=== PATIENT | male | born 1960 | race Caucasian/White ===

== ENCOUNTER 2018-11-10 20:38 | Emergency (ER) | payer MEDICAID ==
[~2018-11-10] VITALS: Ht 180.3 cm; Wt 81.7 kg
[2018-11-10] MEDS ORDERED: SUBOXONE 2 MG-1 EAC2 SL (23:24)
== END 2018-11-11 00:34 | disposition home or self-care (01) ==
LOC: ED 20:38
DX: J98.8 Other specified respiratory disorders (principal); R05 Cough
CPT/HCPCS: 71046

== ENCOUNTER 2019-04-27 07:00 | Emergency (ER) | payer MEDICAID ==
[~2019-04-27] VITALS: Ht 180.3 cm; Wt 81.7 kg
[~2019-04-27 07:00] MED LIST: SUBOXONE 2 MG-1 EAC2 SL
[2019-04-27] MEDS ORDERED: ATENOLOL25 MG PO (07:18)
[2019-04-27] MEDS ORDERED: ROSUVASTATIN CA40 MG PO (07:18)
[2019-04-27] MEDS ORDERED: PEPCID20 MG PO (08:14)
[2019-04-27] MEDS ORDERED: PREDNISONE20 MG PO (08:14)
[2019-04-27] MEDS ORDERED: EPIPEN 2-P0.3 MG/0.3 IM (08:14)
[2019-04-27] MEDS ORDERED: NITROSTAT0.3 MG SL (08:18)
--- OUTSIDE RECORDS SUMMARY | 2019-04-27 09:26 | XMS ---
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 EOsmar VISIT COUNT (12 [address] [facility] 2 [place] [address] JASON Mcbride TOTAL 6 NOTE: Visits indicate total known visits. ED/UCC VISIT TRACKING (12 MO.) 04/27/2019 07:01 [facility] [place] TYPE: Emergency COMPLAINT: - RASH/SWELLING 11/10/2018 20:38 [facility] [place] TYPE: Emergency COMPLAINT: - BREATHING ISSUES DIAGNOSES: - Cough - Other specified respiratory disorders 10/23/2018 16:01 [facility] TYPE: Emergency DIAGNOSES: - Drug Problem - Dehydration - Nausea with vomiting, unspecified - Vomiting - nausea 10/10/2018 21:16 [facility] TYPE: Emergency DIAGNOSES: - Anxiety disorder, unspecified - medication - Anxiety - Nausea/vomiting - Other psychoactive substance dependence, uncomplicated 10/10/2018 09:25 [facility] [place] TYPE: Emergency DIAGNOSES: - withdrawal - Delirium Tremens (DTS) - substance abuse issue - Other psychoactive substance abuse, uncomplicated 07/14/2018 03:30 [facility] [place] TYPE: Emergency DIAGNOSES: - Cutaneous abscess of right lower limb - Chest pain, unspecified - Chest Pain - Medic 2 INPATIENT VISIT TRACKING (12 MO.) No inpatient visits to display in this time frame [email or web address]
== END 2019-04-27 08:56 | disposition home or self-care (01) ==
LOC: ED 07:00
DX: T78.3XXA Angioneurotic edema, initial encounter (principal); T39.395A Adverse effect of other nonsteroidal anti-inflammatory drugs [NSAID], initial encounter; I10 Essential (primary) hypertension; E78.5 Hyperlipidemia, unspecified; F17.200 Nicotine dependence, unspecified, uncomplicated; Z95.5 Presence of coronary angioplasty implant and graft; Z95.1 Presence of aortocoronary bypass graft; Z88.1 Allergy status to other antibiotic agents; Z79.899 Other long term (current) drug therapy
CPT/HCPCS: 96372; 99283-25; J1100; J1200

== ENCOUNTER 2019-05-03 13:19 | Emergency (ER) | payer MEDICAID ==
[~2019-05-03] VITALS: Ht 180.3 cm; Wt 81.6 kg
[~2019-05-03 13:19] MED LIST changes: +ATENOLOL25 MG PO; +EPIPEN 2-P0.3 MG/0.3 IM; +NITROSTAT0.3 MG SL; +PEPCID20 MG PO; +PREDNISONE20 MG PO; +ROSUVASTATIN CA40 MG PO
--- OUTSIDE RECORDS SUMMARY | 2019-05-03 13:22 | XMS ---
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 E.D. VISIT COUNT (12 MO.) 2 [facility] [address] TOTAL 7 NOTE: Visits indicate total known visits. 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 - Adverse effect of nonsteroidal anti-inflammatory drugs, init - Essential (primary) hypertension - Presence of aortocoronary bypass graft - Diseases of lips - Nicotine dependence, unspecified, uncomplicated - Allergy status to other antibiotic agents status - Presence of coronary angioplasty implant and graft - Hyperlipidemia, unspecified 11/10/2018 20:38 [facility] [place] TYPE: Emergency COMPLAINT: - BREATHING ISSUES DIAGNOSES: - Cough - Other specified respiratory disorders 10/23/2018 16:01 [facility] TYPE: Emergency DIAGNOSES: - Drug Problem - Dehydration - Nausea with vomiting, unspecified - Vomiting - nausea 10/10/2018 21:16 [facility] TYPE: Emergency DIAGNOSES: - Anxiety disorder, unspecified - medication - Anxiety - Nausea/vomiting - Other psychoactive substance dependence, uncomplicated 10/10/2018 09:25 [facility] TYPE: Emergency DIAGNOSES: - withdrawal - Delirium Tremens (DTS) - substance abuse issue - Other psychoactive substance abuse, uncomplicated 07/14/2018 03:30 [facility] TYPE: Emergency DIAGNOSES: - Cutaneous abscess of right lower limb - Chest pain, unspecified - Chest Pain - Medic 2 INPATIENT VISIT TRACKING (12 MO.) No inpatient visits to display in this time frame [id number]
[2019-05-03] MEDS ORDERED: PENICILLIN V P500 MG PO (18:13)
--- NOTE | 2019-05-03 22:37 | EKG ---
[facility] [address] [facility] [place], [place] [address] Signed Normal sinus rhythm Inferior infarct , age undetermined ST \T\ T wave abnormality, consider lateral ischemia Abnormal ECG No previous ECGs available Confirmed by PRAKASH GARCIA MD ([id number]) on 05/03/2019 10:37:29 PM Electronically Signed By: PRAKASH GARCIA MD 05/03/19 2237 PATIENT NAME: RUPALI QUIROGA Electrocardiogram DATE OF : 60 PHYSICIAN: PRAKASH GARCIA MD REPORT #: [id number] REPORT IS CONFIDENTIAL AND NOT TO BE RELEASED WITHOUT AUTHORIZATION
== END 2019-05-03 18:25 | disposition home or self-care (01) ==
LOC: ED 13:19
DX: K04.7 Periapical abscess without sinus (principal); R07.9 Chest pain, unspecified; R21 Rash and other nonspecific skin eruption; I10 Essential (primary) hypertension; E78.5 Hyperlipidemia, unspecified; F17.200 Nicotine dependence, unspecified, uncomplicated; Z88.1 Allergy status to other antibiotic agents; Z79.899 Other long term (current) drug therapy
CPT/HCPCS: 36415; 71045; 80053; 83880; 84484; 85025; 93005; 93010; 99285-25; 99406

== ENCOUNTER 2019-05-05 20:00 | Emergency (ER) | payer MEDICAID ==
[~2019-05-05] VITALS: Ht 180.3 cm; Wt 81.7 kg
[~2019-05-05 20:00] MED LIST changes: +PENICILLIN V P500 MG PO
--- OUTSIDE RECORDS SUMMARY | 2019-05-05 20:02 | XMS ---
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 - 2 Visits in 30 Days CARE PROVIDERS SUZY JOSEPH Primary Care Current PHONE: [phone] Riley has no Care Guidelines for this patient. E.D. VISIT COUNT (12 MO.) [address] TOTAL 8 NOTE: Visits indicate total known visits. ED/UCC VISIT TRACKING (12 MO.) 05/05/2019 20:00 [facility] [place] TYPE: Emergency COMPLAINT: - EYE,LIP SWELLING/NON INJURY 05/03/2019 13:20 [facility] TYPE: Emergency COMPLAINT: - DIZZY, WEAK, NAUSEA 04/27/2019 07:01 [facility] [place] TYPE: Emergency COMPLAINT: - RASH/SWELLING DIAGNOSES: - Angioneurotic edema, initial encounter - Other [facility] ([facility] drug therapy - Adverse effect of nonsteroidal anti-inflammatory drugs, init - Essential (primary) hypertension - Presence of aortocoronary bypass graft - Diseases of lips - Nicotine dependence, unspecified, uncomplicated - Allergy status to other antibiotic agents status - Presence of coronary angioplasty implant and graft - Hyperlipidemia, unspecified 11/10/2018 20:[address] [facility] TYPE: Emergency COMPLAINT: - BREATHING ISSUES DIAGNOSES: - Cough - Other specified respiratory disorders 10/23/2018 16:01 [facility] TYPE: Emergency DIAGNOSES: - Drug Problem - Dehydration - Nausea with vomiting, unspecified - Vomiting - nausea 10/10/2018 21:16 [facility] TYPE: Emergency DIAGNOSES: - Anxiety disorder, unspecified - medication - Anxiety - Nausea/vomiting - Other psychoactive substance dependence, uncomplicated 10/10/2018 09:25 [facility] TYPE: Emergency DIAGNOSES: - withdrawal - Delirium Tremens (DTS) - substance abuse issue - Other psychoactive substance abuse, uncomplicated 07/14/2018 03:30 [facility] [place] TYPE: Emergency DIAGNOSES: - Cutaneous abscess of right lower limb - Chest pain, unspecified - Chest Pain - Medic 2 INPATIENT VISIT TRACKING (12 MO.) No inpatient visits to display in this time frame [id number]
== END 2019-05-05 22:05 | disposition home or self-care (01) ==
LOC: ED 20:00
DX: L50.9 Urticaria, unspecified (principal); I10 Essential (primary) hypertension; E78.5 Hyperlipidemia, unspecified; F17.200 Nicotine dependence, unspecified, uncomplicated; Z79.899 Other long term (current) drug therapy
CPT/HCPCS: 96374; 96375; 99283-25; J1200; J2930

== ENCOUNTER 2019-06-05 21:11 | Emergency (ER) | payer OTHER ==
[~2019-06-05] VITALS: Ht 180.3 cm; Wt 81.7 kg
--- OUTSIDE RECORDS SUMMARY | 2019-06-05 21:14 | XMS ---
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 Riley has no Care Guidelines for this patient. Ricci VISIT COUNT (12 MO.) 2 [facility] 2 [place] [address] JASON Mcbride TOTAL 9 NOTE: Visits indicate total known visits. ED/[facility] VISIT TRACKING (12 MO.) 06/05/2019 21:11 [facility] [place] TYPE: Emergency COMPLAINT: - FACIAL SWELLING 05/05/2019 20:00 [facility] [place] TYPE: Emergency COMPLAINT: - EYE,LIP SWELLING/NON INJURY DIAGNOSES: - Nicotine dependence, unspecified, uncomplicated - Essential (primary) hypertension - Urticaria, unspecified - Hyperlipidemia, unspecified - Other specified disorders of eye and adnexa - Other manager long term care (current) drug therapy 05/03/2019 13:20 [facility] [place] TYPE: Emergency COMPLAINT: - DIZZY, WEAK, NAUSEA DIAGNOSES: - Allergy status to other antibiotic agents status - Chest pain, unspecified - Rash and other nonspecific skin eruption - Essential (primary) hypertension - Periapical abscess without sinus - Other manager long term care (current) drug therapy - Hyperlipidemia, unspecified - Other specified disorders of teeth and supporting structures - Nicotine dependence, unspecified, uncomplicated 04/27/2019 07:01 [facility] [place] TYPE: Emergency COMPLAINT: - RASH/SWELLING DIAGNOSES: - Angioneurotic edema, initial encounter - Other snf (current) drug therapy - Adverse effect of other nonsteroidal anti-inflammatory drugs - Essential (primary) hypertension - Presence of aortocoronary bypass graft - Diseases of lips - Nicotine dependence, unspecified, uncomplicated - Allergy status to other antibiotic agents status - Presence of coronary angioplasty implant and graft - Hyperlipidemia, unspecified 11/10/2018 20:[address] [facility] [place] TYPE: Emergency COMPLAINT: - BREATHING ISSUES DIAGNOSES: - Cough - Other specified respiratory disorders 10/23/2018 16:01 [facility] [place] [facility] TYPE: Emergency DIAGNOSES: - Drug Problem - Dehydration - Nausea with vomiting, unspecified - Vomiting - nausea 10/10/2018 21:16 [facility] [place] [facility] TYPE: Emergency DIAGNOSES: - Anxiety disorder, unspecified - medication - Anxiety - Nausea/vomiting - Other psychoactive substance dependence, uncomplicated 10/10/2018 09:25 [facility] [place] TYPE: Emergency DIAGNOSES: - withdrawal - Delirium Tremens (DTS) - substance abuse issue - Other psychoactive substance abuse, uncomplicated 07/14/2018 03:30 [facility] [place] TYPE: Emergency DIAGNOSES: - Cutaneous abscess of right lower limb - Chest pain, unspecified - Chest Pain - Medic 2 INPATIENT VISIT TRACKING (12 MO.) No inpatient visits to display in this time frame [id number]
[2019-06-05] MEDS ORDERED: CETIRIZINE HCL10 MG PO (21:49)
== END 2019-06-05 22:18 | disposition home or self-care (01) ==
LOC: ED 21:11
DX: L50.9 Urticaria, unspecified (principal); I10 Essential (primary) hypertension; E78.5 Hyperlipidemia, unspecified; F17.200 Nicotine dependence, unspecified, uncomplicated; Z88.1 Allergy status to other antibiotic agents
CPT/HCPCS: 96372; 99282; J1200; J7512

== ENCOUNTER 2020-02-08 06:16 | Emergency (ER) | payer OTHER ==
[~2020-02-08] VITALS: Ht 180.3 cm; Wt 91.0 kg
[~2020-02-08 06:16] MED LIST changes: +CETIRIZINE HCL10 MG PO
--- OUTSIDE RECORDS SUMMARY | 2020-02-08 06:18 | XMS ---
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 E.Devang VISIT COUNT (12 MO.) 5 [facility] TOTAL 5 NOTE: Visits indicate total known visits. ED/UCC VISIT TRACKING (12 MO.) 02/08/2020 06:16 [facility] [place] TYPE: Emergency COMPLAINT: - FACIAL SWELLING, POSSIBLE MEDICATION REACTION 06/05/2019 21:11 [facility] [place] TYPE: Emergency COMPLAINT: - FACIAL SWELLING DIAGNOSES: - Hyperlipidemia, unspecified - Urticaria, unspecified - Essential (primary) hypertension - Urticaria, unspecified - Allergy status to other antibiotic agents - Nicotine dependence, unspecified, uncomplicated 05/05/2019 20:00 [facility] [place] TYPE: Emergency COMPLAINT: - EYE,LIP SWELLING/NON INJURY DIAGNOSES: - Nicotine dependence, unspecified, uncomplicated - Essential (primary) hypertension - Urticaria, unspecified - Hyperlipidemia, unspecified - Other specified disorders of eye and adnexa - 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 05/03/2019 13:20 [facility] [place] TYPE: Emergency COMPLAINT: - DIZZY, WEAK, NAUSEA DIAGNOSES: - Allergy status to other antibiotic agents - Chest pain, unspecified - Rash and other nonspecific skin eruption - Essential (primary) hypertension - Periapical abscess without sinus - Other detention (current) drug therapy - Hyperlipidemia, unspecified - Other specified disorders of teeth and supporting structures - Nicotine dependence, unspecified, uncomplicated 04/27/2019 07:01 [facility] [place] TYPE: Emergency COMPLAINT: - RASH/SWELLING DIAGNOSES: - Angioneurotic edema, initial encounter - 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
[2020-02-08] MEDS ORDERED: CARVEDILOL3.125 MG PO (06:32)
[2020-02-08] MEDS ORDERED: CLINDAMYCIN HC300 MG PO (06:32)
[2020-02-08] MEDS ORDERED: LISINOPRIL5 MG PO (06:33)
== END 2020-02-08 11:50 | disposition home or self-care (01) ==
LOC: ED 06:16
DX: T78.3XXA Angioneurotic edema, initial encounter (principal); I10 Essential (primary) hypertension; E78.5 Hyperlipidemia, unspecified; F17.200 Nicotine dependence, unspecified, uncomplicated; Z88.1 Allergy status to other antibiotic agents; Z79.899 Other long term (current) drug therapy
CPT/HCPCS: 80053; 85025; 96374; 99283-25

== ENCOUNTER 2020-10-19 16:42 | Emergency (ER) | payer OTHER ==
[~2020-10-19] VITALS: Ht 180.3 cm; Wt 90.7 kg
[~2020-10-19 16:42] MED LIST changes: +CARVEDILOL3.125 MG PO; +CLINDAMYCIN HC300 MG PO; +LISINOPRIL5 MG PO
--- OUTSIDE RECORDS SUMMARY | 2020-10-19 16:44 | XMS ---
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 E.Devang VISIT COUNT (12 MO.) 2 [facility] TOTAL 2 NOTE: Visits indicate total known visits. ED/UCC VISIT TRACKING (12 MO.) 10/19/2020 16:42 [facility] TYPE: Emergency COMPLAINT: - FLU SYMPTOMS 02/08/2020 06:16 [facility] TYPE: Emergency COMPLAINT: - FACIAL SWELLING, POSSIBLE MEDICATION REACTION DIAGNOSES: - Allergy status to other antibiotic agents - Localized swelling, mass and lump, head - Hyperlipidemia, unspecified - Essential (primary) hypertension - Other alf (current) drug therapy - Angioneurotic edema, initial encounter - Nicotine dependence, unspecified, uncomplicated INPATIENT VISIT TRACKING (12 MO.) No inpatient visits to display in this time frame [id number]
[2020-10-19] MEDS ORDERED: REPATHA SU140 MG/1 M SQ (17:30)
[2020-10-19] MEDS ORDERED: BUPRENORPHINE HC8 MG SL (17:31)
== END 2020-10-19 21:29 | disposition home or self-care (01) ==
LOC: ED 16:42
DX: U07.1 COVID-19 (principal); I10 Essential (primary) hypertension; E78.5 Hyperlipidemia, unspecified; F17.200 Nicotine dependence, unspecified, uncomplicated; Z88.1 Allergy status to other antibiotic agents; Z88.8 Allergy status to other drugs, medicaments and biological substances; Z79.899 Other long term (current) drug therapy; Z86.79 Personal history of other diseases of the circulatory system
CPT/HCPCS: 71045; 99283-25; C9803; M0243; Q0244; U0003

== ENCOUNTER 2021-04-24 06:26 | Inpatient (IN) | payer OTHER ==
[~2021-04-24] VITALS: Ht 180.3 cm; Wt 93.4 kg
--- NOTE | ~2021-04-24 | DS ---
[facility] [address], [place] [address] Draft ADMISSION DATE: 04/24/2021 DISCHARGE DATE: 04/26/2021 REASON FOR ADMISSION: This 61-year-old white man lives in [place] and is from [place], [place] a number of years ago. He was evaluated by Dr. Kenny for vague abdominal pain and found on CT scan to likely have small bowel obstruction. He is admitted for further evaluation and care. HISTORY OF PRESENT ILLNESS: Dominantly includes the increasing pain, which progressed to diffuse abdominal tenderness and evaluation in the emergency room using a CT scan showed narrowing of the distal ileum, but without sign of Crohn disease proper. There is proximal small bowel dilation. Clinical examination showed mild distention. No focal tenderness. Laboratory studies on admission showed a white count of 10.1. Liver enzymes were normal. COVID serology negative. HOSPITAL COURSE: He was given a nasogastric tube in the emergency room and decompression undertaken. His first day following admission, he had much improvement in regard to his symptoms and a plain abdominal x-ray showed resolution of small bowel obstruction that had been well demonstrated on CT scan. It is notable that he had no prior abdominal operations, so he has a coronary stenting and other such interventions. The second day of hospitalization, nasogastric tube was removed and he was begun on a clear liquid diet and advanced from there. He had additional bowel movements, lack of abdominal distention and pain and tolerated oral intake well enough that he was deemed resolved on his bowel obstruction both radiographically and clinically. He was discharged home in good condition. DISCHARGE MEDICATIONS: Will include: 1. Nicotine patch 20 mg per 24 hours one topical daily #30, refill 3. 2. Nitroglycerin 21 mg one transdermal daily. 3. Nitrostat 0.3 mg sublingual as needed for chest pain. 4. Buprenorphine 8 mg p.o. 3 times daily. 5. Carvedilol 6.25 mg tablets b.i.d. 6. Atorvastatin 20 mg one tablet p.o. daily. 7. Repatha 140 mg subcutaneously every 2 weeks. 8. Lasix 40 mg p.o. daily as needed for leg edema. PATIENT NAME: RUPALI QUIROGA DISCHARGE SUMMARY DATE OF : 60 REPORT #: [id number] PHYSICIAN: TEDDY ARROYO MD PCP: KIERSTEN JONES PA-C REPORT IS CONFIDENTIAL AND NOT TO BE RELEASED WITHOUT AUTHORIZATION [facility] [address], [place] [address] Draft 9. Aspirin 81 mg daily. DISCHARGE DIAGNOSES: 1. Acute small bowel obstruction with spontaneous resolution. 2. History of coronary disease including stenting and bypass grafting. 3. Buprenorphine therapy. No doubt for prior opiate addiction. 4. Dyslipidemia. FOLLOWUP PLAN: He will return to the ongoing care of [facility]. If he should have recurrent symptoms of small bowel obstruction, he should present to the emergency room once again for further evaluation and treatment. MD ABIEL Mahajan/KATIE /[id number] cc: Dr. Kiersten Encarnacion PA-C Copies: KIERSTEN JONES PA-C ~ PATIENT NAME: RUPALI QUIROGA DISCHARGE SUMMARY DATE OF : 60 REPORT #: [id number] PHYSICIAN: TEDDY ARROYO MD PCP: KIERSTEN JONES PA-C REPORT IS CONFIDENTIAL AND NOT TO BE RELEASED WITHOUT AUTHORIZATION
[~2021-04-24 06:26] MED LIST changes: +BUPRENORPHINE HC8 MG SL; +REPATHA SU140 MG/1 M SQ
--- OUTSIDE RECORDS SUMMARY | 2021-04-24 06:28 | XMS ---
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 E.DBridget VISIT COUNT (12 MO.) 2 [facility] TOTAL 2 NOTE: Visits indicate total known visits. 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
--- NOTE | 2021-04-24 13:00 | NUR ---
Pt arrives to med surg unit via stretcher and able to transfer self to bed. NGT in place to LIWS. Assessment and hx complete. IVF bolus infusing. Pepcid and nicotine patch administered. Pt on room air, VSS. Pt's nephew here to visit patient.
--- NOTE | 2021-04-24 15:00 | NUR ---
Iv pump alarming, distal occlusion, error resolved. Pt resting in bed with no needs. He states no pain or nausea. NGT WNL
--- NOTE | 2021-04-24 15:09 | NUR ---
Scheduled medication administered. Pt resting in bed and states no pain, "just tired", allowed to rest at this time. NGT to LIWS with brown drainage noted. IVF infusing WNL. No needs at this time.
--- NOTE | 2021-04-24 15:15 | NUR ---
Scheduled medication administered. Pt drowsy resting in bed. NGT to JARRELL WNL.
--- NOTE | 2021-04-24 16:56 | HP ---
[facility] [address] [place], [place] [address] Signed ADMISSION DATE: 04/24/2021 REASON FOR ADMISSION: Probable small-bowel obstruction (distal). HISTORY OF PRESENT ILLNESS: This 61-year-old white man, who lives in [place] and long-term from [facility] presents to the emergency room where he was evaluated by Dr. Kenny for vague abdominal pain. His symptoms began yesterday where he was feeling unwell. He had no vomiting but did feel somewhat nauseated and with vague abdominal pain. The pain progressed to the point that it was unbearable. He presented to the emergency room where he was evaluated and found to have diffuse abdominal tenderness. Evaluation include a CT scan of the abdomen which shows what appears to be narrowing of the distal ileum with proximal small-bowel dilation. Of note, he has no prior abdominal intervention of any sort and has never had symptoms of this type in the past. There is no associated tumor noted. PAST MEDICAL HISTORY: Notable for coronary artery disease. He has undergone stenting in the past and although previously he was on Plavix, is now only on aspirin on a daily basis. He also takes Repatha for his dyslipidemia problem. Unfortunately, the patient continues to smoke at least 6 to 7 cigarettes a day. MEDICATIONS: His medicine list includes: 1. Buprenorphine 8 mg tablets sublingual t.i.d. 2. Carvedilol 3.125 mg p.o. b.i.d. 3. Nitrostat 0.3 sublingual as needed for chest pain. 4. Rosuvastatin calcium 40 mg p.o. daily. SOCIAL HISTORY: He is unmarried. He lives alone. He lives in [place]. 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 Additional medications includes Repatha, evolocumab. REVIEW OF SYSTEMS: He denies any shortness of breath or chest pain. He does not get angina particularly. Electronically Signed By: TEDDY ARROYO MD 04/24/21 1656 PATIENT NAME: RUPALI QUIROGA HISTORY AND PHYSICAL DATE OF : 60 REPORT #: [id number] PHYSICIAN: TEDDY ARROYO MD PCP: ASHLY JONES PA-C REPORT IS CONFIDENTIAL AND NOT TO BE RELEASED WITHOUT AUTHORIZATION [facility] [address], [place] [address] Signed He has no dyspnea on exertion. PHYSICAL EXAMINATION: GENERAL: Tall white man who does not look to be toxic currently. VITAL SIGNS: His temperature is unrecorded and pulse is 61, blood pressure 126/84, O2 saturation 96% on room air. HEENT: Trachea is midline. Mucous membranes are reasonably moist. CHEST: Shows normal respiratory excursion. He has no cough. No tachypnea. HEART: Regular without murmur. ABDOMEN: Scaphoid generally. Gentle palpation reveals no evidence of peritonitis. There is no mass. There is no ascites. EXTREMITIES: Show no clubbing, cyanosis, or edema. LABORATORY STUDIES: Show white count of 10.1, hematocrit 48.1, platelets 226,000. Chem profile is essentially normal. Glucose is 162. Liver enzymes are normal. Lipase 107. Urinalysis is normal. COVID serology is negative as is influenza type A, RSV and influenza type B. CT scan was reviewed in detail. The images do show some proximal small bowel dilation including some gastric distention. There is an area outlined by the radiologist as a possible transition point. That is not as specific in my estimation as it may be due to hers. There is generally diffuse dilation of the bowel. The liver is normal. The gallbladder appears normal as well. The stomach was quite distended with fluid. A nasogastric tube has since been placed. Followup x-ray shows nasogastric tube to be in good position. ASSESSMENT: The patient does appear to have probably a distal small-bowel obstruction without associated prior laparotomy or intervention of the abdomen that might account for adhesions. I see no evidence of neoplasm in the area presumed as a transition point for obstruction. This may represent adhesion or other similar issue. Note is made of the terminal ileum in relation to the cecum and the other dilated loops of small bowel. A short course of observation with IV fluid resuscitation, nasogastric tube decompression, and so on may be reasonable as spontaneous resolution is a possibility. If prompt resolution is not noted, then laparoscopy and possible laparotomy would be appropriate to relieve the obstructive process. Discussed all this with him, he understands. We will initiate the medications that we can as regards to his cardiac issue and certainly use a nicotine patch as he does have daily tobacco use as well. Electronically Signed By: TEDDY ARROYO MD 04/24/21 1656 PATIENT NAME: RUPALI QUIROGA HISTORY AND PHYSICAL DATE OF : 60 REPORT #: [id number] PHYSICIAN: TEDDY ARROYO MD PCP: ASHLY JONES PA-C REPORT IS CONFIDENTIAL AND NOT TO BE RELEASED WITHOUT AUTHORIZATION [facility] [address] [place] [address] Signed MD ABIEL Mahajan/MODL /[id number] cc: Teddy Kenny MD Copies: ~ Electronically Signed By: TEDDY ARROYO MD 04/24/21 1656 PATIENT NAME: RUPALI QUIROGA HISTORY AND PHYSICAL DATE OF : 60 REPORT #: [id number] PHYSICIAN: TEDDY ARROYO MD PCP: ASHLY JONES PA-C REPORT IS CONFIDENTIAL AND NOT TO BE RELEASED WITHOUT AUTHORIZATION
[2021-04-24] MEDS ORDERED: ATORVASTATIN CA20 MG PO (17:13)
[2021-04-24] MEDS ORDERED: CARVEDILOL6.25 MG PO (17:13)
--- NOTE | 2021-04-24 17:30 | NUR ---
Pt questions about visitor policy, in room to discuss policy
--- NOTE | 2021-04-24 18:22 | NUR ---
Pt visitor escorted to room. Pt has no needs at this time, resting in bed using phone. NGT to LIWS, states no pain.
--- NOTE | 2021-04-24 18:40 | NUR ---
VSS, I/Os complete. Pt requests PRN toradol, states pain 3/10 at this time and tolerable. NGT to JARRELL MOSLEY.
--- NOTE | 2021-04-24 19:30 | NUR ---
SHIFT REPORT RECEIVED FROM LILIANA HERNANDEZ. PT RESTING IN BED, VISITING WITH FAMILY. IV FLUIDS INFUSING PER ORDER. NG AT LIS, SCANT BROWN DISCHARGE. NO NEEDS AT THIS TIME. CALL LIGHT IN REACH.
--- NOTE | 2021-04-24 22:00 | NUR ---
ASSESSMENT COMPLETED. GCS 15, A7O X4. PT PAIN 2/10 IN ABD, DENIES NEED FOR PAIN INTERVENTIONS. LUNGS CLEAR, HEART TONES REGULAR. NG TUBE WNL, SMALL AMOUNT OF BROWN OUTPUT, PT TOLERATING WELL. ABD SOFT, TENDER, BOWEL TONES ACTIVE. CMS INTACT. IV WNL, CDI, FLUSHED WELL, IV FLUIDS INFUSING PER ORDER. SCHEDULED MEDS PROVIDED. NICOTINE PATCH REMOVED. PT DENIES NAUSEA. NO OTHER NEEDS AT THIS TIME. CALL LIGHT IN REACH.
--- NOTE | 2021-04-25 01:46 | NUR ---
Vitals are complete and I&Os. BP was 123/53. MAP was 70. Call light is in reach.
--- NOTE | 2021-04-25 03:39 | NUR ---
PT IV ALARMING, NEW BAG IV FLUIDS PROVIDED. PT DENIES ABD PAIN AT THIS TIME. DENIES NAUSEA. PT STATES THE NG TUBE IS STARTING TO IRRITATE HIS THROAT, REPOSITIONED. NG TUBE HAS SCANT BROWN OUTPUT. IV FLUIDS INFUSING PER ORDER. ASSESSMENT COMPLETED. NO OTHER NEEDS AT THIS TIME. CALL LIGHT IN REACH.
--- NOTE | 2021-04-25 05:21 | NUR ---
PT RESTING IN BED, RR EVEN, UNLABORED. NG @ LIS. IV FLUIDS INFUSING PER ORDER. CALL LIGHT IN REACH.
--- NOTE | 2021-04-25 05:43 | NUR ---
RN is in room. Vitals, I&Os are complete. Call is in reach.
--- NOTE | 2021-04-25 09:29 | NUR ---
Admin Toradol 30mg IVP for reports of 6/10 abdominal pain. Patient denies nausea at this time. Bowel tones active x4 quadrants. NG clamped at this time as am cardiac po medication admin. Patient reports passing flatus. No current needs at this time. Personal supplies and call light within reach.
[2021-04-25] MEDS ORDERED: REPATHA SU140 MG/1 M SUB-Q (11:38)
--- NOTE | 2021-04-25 11:45 | NUR ---
Spoke with Albert. States he lives alone in an apartment. Best friend is Gabrielle and she will assist him if needed. 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 Feelin better, had a bm. He drives, no financial issues, and does not use DME. Plans on dc to home when cleared medically.
--- NOTE | 2021-04-25 11:53 | NUR ---
Verbal order obtained from Dr. Massey to saline lock patient and order cepacol lozenges for throat pain prn.
--- NOTE | 2021-04-25 11:55 | NUR ---
Dr. Massey removed patient's NG tube at this time. Patient tolerated removal well.
[2021-04-25] MEDS ORDERED: FUROSEMIDE40 MG PO (12:16)
--- NOTE | 2021-04-25 12:17 | NUR ---
MED REC COMPLETE
[2021-04-25] MEDS ORDERED: ADULT ASPIRIN R81 MG PO (12:24)
--- NOTE | 2021-04-25 13:25 | NUR ---
RN IN CARING FOR PT-CHECKED TO SEE IF HE WANTED FR KING TO VISIT TODAY-HE SAID HE WOULD LIKE THAT. SEEMS FAMILY MAY HAVE ALREADY CONTACTED HIM, FR. KING ENTERED PT'S RM I WAS LEAVING. GAVE BLESSING AND WILL FOLLOW S+
--- NOTE | 2021-04-25 13:31 | NUR ---
PATIENT SITTING IN BED EATING LUNCH, FAMILY MEMBER IN ROOM. PATIENT ENCOURAGED TO SPEND TIME IN CHAIR, PATIENT REFUSED, "I'M HAPPY IN THE BED" PATIENT VERY PLEASANT. CALL LIGHT IN REACH
--- NOTE | 2021-04-25 14:56 | NUR ---
Patient awake sitting up in bed, no distress. Patient tolerating clear liquids well. Patient denies needs at this time. Personal supplies and call light within reach.
--- NOTE | 2021-04-25 17:38 | NUR ---
Admin Toradol 30mg IVp for reports of 3/10 back and abd pain.
--- NOTE | 2021-04-25 19:04 | NUR ---
Patient ambulated in room, up to restroom for bm. Patient reports he is feeling much better this evening, no nausea. Patient tolerating clear liquids well. Patient has + bowel tones x4 quadrants. Patient has no current needs.
--- NOTE | 2021-04-25 19:30 | NUR ---
SHIFT REPORT RECEIVED FROM JOHN HERNANDEZ. PT RESTING IN BED, READING. NO NEEDS AT THIS TIME. CALL LIGHT IN REACH.
--- NOTE | 2021-04-25 21:00 | NUR ---
ASSESSMENT COMPLETED. GCS 15, A&O X4. LUNGS CLEAR, HEART TONES REGULAR. ABD SOFT, TENDER, BOWEL TONES ACTIVE. CMS INTACT. IV WNL, CDI, FLUSHED WELL. PT DENIES PAIN AND NAUSEA. SCHEDULED MEDS PROVIDED. NO OTHER NEEDS. CALL LIGHT IN REACH.
--- NOTE | 2021-04-26 | NUR ---
PT RESTING IN BED, READING. NO NEEDS AT THIS TIME. CALL LIGHT IN REACH.
--- NOTE | 2021-04-26 02:00 | NUR ---
PT RESTING IN BED, EYES CLOSED. RR EVEN, UNLABORED. CALL LIGHT IN REACH.
--- NOTE | 2021-04-26 04:00 | NUR ---
PT RESTING IN BED, EYES CLOSED. RR EVEN, UNLABORED. CALL LIGHT IN REACH.
--- NOTE | 2021-04-26 05:15 | NUR ---
ASSESSMENT, VS AND I&O COMPLETED. PT STATES HE HAS 4/10 BACK PAIN, PRN PAIN MED PROVIDED. PT DENIES ABD PAIN AND NAUSEA. IV WNL. ABD SOFT, TENDER TO PALPATION, BOWEL TONES ACTIVE. CMS INTACT. LUNGS CLEAR, HEART TONES REGUALR. DRINK PROVIDED. NO OTHER NEEDS. CALL LIGHT IN REACH.
--- NOTE | 2021-04-26 11:45 | NUR ---
Spoke with Pk, he denies needs. Tolerating liquids well.
--- NOTE | 2021-04-26 12:03 | NUR ---
FR ADRIÁN BERNARDO VISIT PT TODAY
--- NOTE | 2021-04-26 13:26 | NUR ---
Patient sitting up in bed reading, no distress. Patient tolerating clear liquids well, denies nausea. Encouraged patient to get up and ambulate frequently. Fresh water provided. No current needs.
[2021-04-26] MEDS ORDERED: NICOTINE1 EAC2 TD (15:50)
--- NOTE | 2021-04-26 16:03 | NUR ---
Toradol 30mg IVp admin for reports of 4/10 generalized pain.
== END 2021-04-26 16:15 | disposition home or self-care (01) | DRG 390 ==
LOC: ED 06:26 → MS 12:12
PROVIDERS: ADMIT Surgery; ATTEND Surgery
PROC: 0D9670Z Drainage of Stomach with Drainage Device, Via Natural or Artificial Opening (ICD-10-PCS; principal; 2021-04-26)
DX: K56.609 Unspecified intestinal obstruction, unspecified as to partial versus complete obstruction (principal); Z20.822 Contact with and (suspected) exposure to COVID-19; I10 Essential (primary) hypertension; E78.5 Hyperlipidemia, unspecified; I25.10 Atherosclerotic heart disease of native coronary artery without angina pectoris; F17.200 Nicotine dependence, unspecified, uncomplicated; Z79.82 Long term (current) use of aspirin; Z95.1 Presence of aortocoronary bypass graft; Z79.899 Other long term (current) drug therapy; Z88.1 Allergy status to other antibiotic agents; Z88.8 Allergy status to other drugs, medicaments and biological substances; Z95.5 Presence of coronary angioplasty implant and graft
CPT/HCPCS: 36415; 43752; 71045; 74018; 74177; 80053; 81001; 83690; 85025; 99285-25; C9803; J0131; J1644; J1885; J7121; U0003

== ENCOUNTER 2021-08-30 22:32 | Observation (INO) | payer OTHER ==
[~2021-08-30] VITALS: Ht 180.3 cm; Wt 87.2 kg
[~2021-08-30 22:32] MED LIST changes: +ADULT ASPIRIN R81 MG PO; +ATORVASTATIN CA20 MG PO; +CARVEDILOL6.25 MG PO; +FUROSEMIDE40 MG PO; +NICOTINE1 EAC2 TD; +REPATHA SU140 MG/1 M SUB-Q
--- OUTSIDE RECORDS SUMMARY | 2021-08-30 22:34 | XMS ---
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 Riley has no Care Guidelines for this patient. Ricci VISIT COUNT (12 MO.) 3 [facility] TOTAL 3 NOTE: Visits indicate total known visits. ED/C VISIT TRACKING (12 MO.) 08/30/2021 22:32 [facility] OR TYPE: Emergency COMPLAINT: - ABDOMINAL PAIN 04/24/2021 06:27 [facility] TYPE: Emergency [...] status to other antibiotic agents - Other longterm (current) drug therapy - Essential (primary) hypertension INPATIENT VISIT TRACKING (12 MO.) 04/24/2021 12:12 [facility] OR TYPE: Medical Surgical COMPLAINT: - SBO DIAGNOSES: - Unspecified intestinal obstruction, unspecified as to partial versus complete obstruction - Contact with and (suspected) exposure to COVID-19 - Presence of aortocoronary bypass graft - Allergy status to other drugs, medicaments and biological substances - 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 - Hyperlipidemia, unspecified - Atherosclerotic heart disease of [place] coronary artery without angina pectoris - Atherosclerotic heart disease of [place] coronary artery without angina pectoris - Presence of aortocoronary bypass graft - Nicotine dependence, unspecified, uncomplicated - Hyperlipidemia, unspecified - Allergy status to other antibiotic agents - Allergy status to other drugs, medicaments and biological substances - Presence of coronary angioplasty implant and graft - Essential (primary) hypertension - Essential (primary) hypertension - 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
--- NOTE | 2021-08-31 02:10 | NUR ---
PT ARRIVED VIA STRETCHER TO ROOM 116 HE TRANSFERED SELF TO ROOM BED, PT IS ALERT AND ORIENTED, COOPERATIVE WITH CARE
--- NOTE | 2021-08-31 02:10 | NUR ---
pt admitted via stretcher from ED. lopez andjesused.
--- NOTE | 2021-08-31 02:36 | NUR ---
Pt drowsy, staed comofrtable to abd pain. on room air, tender abd ROSMERY, LBM small 08/30, IVF infusing LFA, no c/o n/v. coop with admit assessment. Oriented to room and procedures, NPO swabs at bedside, explained to pt, cont to teach. call light at bedside
--- NOTE | 2021-08-31 03:48 | NUR ---
RESTING, ON ROOM AIR, NO DISTRESS, IVF INFUSING W/O PROBLEMS, CALL LIGHT AT HANDS REACH
--- NOTE | 2021-08-31 04:41 | NUR ---
Pt on room air, has slept since admission, no c/o emesis or abd pain. IVF infusing w/o problems. NPO, oral swabs at hands reach. alert and oriented, irritable mood on admission byt cooperative, follows instructions. call light at hands reach
--- NOTE | 2021-08-31 05:30 | NUR ---
On room air, awakes easily, no c/o n/v or abd pain, coop with vitals. IVF infusing w/o problems, oral sponges at hands reach. NPO. Due to void, pt aware , denies need for void at this time. I peed in the Ed before maria elena brought me here. no bladder distantion noted. call light at hands reach. cooperative
--- NOTE | 2021-08-31 06:36 | NUR ---
PT HAS NOT VOIDED SINCE ADMIT AT 0210, VOIDED IN ED PRIOR TO ADMIT. HAS IVF INFUSING. HAS DENIED NEED TO URINATE . HAS SLEPT. DR ZAMORA NOTIFIED
--- NOTE | 2021-08-31 07:30 | NUR ---
THIS RN RECEIVED REPORT FROM MARY VERA. PATIENT RESTING QUIETLY IN BED, EYES CLOSED, RESPIRATIONS ARE REGULAR AND EVEN, AND CALL LIGHT IS IN REACH.
--- NOTE | 2021-08-31 08:10 | CONS ---
[facility] [address], [place] [address] Signed DATE OF CONSULTATION: 08/31/2021 CHIEF COMPLAINT: Periumbilical abdominal pain. 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 He is disabled but is able to drive himself around town. He has never had abdominal surgery. He loves the coleslaw and he got into trouble back in April of this year with the same situation. He had been seen by Dr. Siegel and improved and discharged to home. Again, he was eating coleslaw and developed crampy periumbilical abdominal pain. He came to the emergency room for evaluation. White count was normal, but the CT scan showed what was probably a mid small-bowel obstruction/transition point. I have been asked to admit him overnight as a general surgeon on-call. He said he is a little embarrassed at this point because he feels much better and has passed gas and several bowel movements. All the pain has gone. The nausea and vomiting have gone and he said he is hungry and would like to have something to drink. PAST MEDICAL HISTORY: 1. Hyperlipidemia. 2. Coronary artery disease. PAST SURGICAL HISTORY: Includes CABG x4 and cardiac stents. SOCIAL HISTORY: He has been off heroin for five years. He does not drink. He is disabled and lives here in [place], [place]. He does drive. He prefers the [facility]. Kiersten Smith is his primary care provider. His sister is Gabrielle Thomas. Dr. Rocael Young is his associate store director in [place], [place]. FAMILY HISTORY: Heart disease and alcoholism. REVIEW OF SYSTEMS: He had 10 systems reviewed. There were no new findings. ALLERGIES: Lisinopril and erythromycin. MEDICATIONS: 1. Nitroglycerin. 2. Nicotine. Electronically Signed By: MARTINA ZAMORA MD 08/31/21 0810 PATIENT NAME: RUPALI QUIROGA CONSULTATION DATE OF : 60 REPORT #: [id number] PHYSICIAN: MARTINA ZAMORA MD PCP: KIERSTEN SMITH PA-C REPORT IS CONFIDENTIAL AND NOT TO BE RELEASED WITHOUT AUTHORIZATION [facility] [address] [place] [id number] Signed 3. Buprenorphine. 4. Carvedilol. 5. Evolocumab. 6. Aspirin. PHYSICAL EXAMINATION: VITAL SIGNS: Blood pressure is 104/57, heart rate is 74, respiratory rate is 18, temperature is 97.9, he is 96% on room air. He is 5 feet 11 inches at 87 kg. GENERAL: Rupali is a 61-year-old gentleman, who is alert, awake, and interactive without any distress. LUNGS: Clear to auscultation bilaterally. His teeth are in very poor repair. HEART: Regular rate and rhythm without murmurs. ABDOMEN: Soft, flat and nontender with a small umbilical hernia. LABORATORY DATA: White blood cell count is 10.7, neutrophils 16. Electrolytes unremarkable. His lactic acid was 0.3. Urine specific gravity was up at 1.03. Liver function tests are negative, albumin is 3.7, lipase is 50. COVID is negative. RADIOGRAPHIC STUDIES: CT scan of the abdomen and pelvis is reviewed and he appears to have a transition point in the mid small bowel. ASSESSMENT AND PLAN: Rupali is a 61-year-old gentleman, who apparently has something in the mid small bowel that has bothered him at least twice relative to his frequent use of coleslaw. He said he is much better now and feels a little embarrassed that he is here. He wants to try some clear liquids. In the future, I advised him to cut the coleslaw into really small pieces less than 1 cm in diameter and that should help significantly. We will treat him on a conservative basis and see if this does not pass on its own. He has expressed understanding and agrees with the above plan. Martina Zamora MD [facility]/ERNEST[facility] /[id number] Electronically Signed By: MARTINA ZAMORA MD 08/31/21 0810 PATIENT NAME: RUPALI QUIROGA CONSULTATION DATE OF : 60 REPORT #: [id number] PHYSICIAN: MARTINA ZAMORA MD PCP: KIERSTEN SMITH PA-C REPORT IS CONFIDENTIAL AND NOT TO BE RELEASED WITHOUT AUTHORIZATION [facility] [address] [place] [id number] Signed cc: MD Kiersten Cowan PA-C Copies: MARTINA ZAMORA MD, CHLOE K PA-C ~ Electronically Signed By: MARTINA ZAMORA MD 08/31/21 0810 PATIENT NAME: RUPALI QUIROGA CONSULTATION DATE OF : 60 REPORT #: [id number] PHYSICIAN: MARTINA ZAMORA MD PCP: KIERSTEN SMITH PA-C REPORT IS CONFIDENTIAL AND NOT TO BE RELEASED WITHOUT AUTHORIZATION
--- NOTE | 2021-08-31 08:30 | NUR ---
PATIENT RESTING QUIETLY IN BED AND HAS NO NURSING CARE NEEDS AT THIS TIME. CALL LIGHT IS IN REACH.
--- NOTE | 2021-08-31 10:24 | NUR ---
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 PATIENT DENIES PAIN AND NAUSEA. ALL AM MEDS GIVEN AND AM ASSESSMENT COMPLETE. PATIENT HAS HAD A LARGE BOWEL MOVEMENT AND SAYS HE FEELS LIKE HE IS READY TO GO HOME NOW. CALL LIGHT IN REACH AND PATIENT DENIES ANY OTHER CARE NEEDS AT THIS TIME.
--- NOTE | 2021-08-31 12:43 | NUR ---
THIS RN IN TO TALK WITH PATIENT PATIENT HAS HAD 2 MORE LARGE BOWEL MOVEMENTS FOR A TOTAL OF 3 BM'S. PATIENT SAYS HE WANTS TO LEAVE IN THE NEXT 3 HOURS AND THAT HE NEEDS TO GET HOME TO TAKE CARE OF HIS DOG. PATIENT WANTING TO TALK TO . THIS RN CALLED AND HE INFORMED THIS RN HE WOULD BE IN SURGERY FOR ANOTHER HOUR AND HE WOULD COME TALK TO THIS PATIENT BETWEEN CASSES. THIS INFORMATION WAS PASSED ON TO THE PATIENT BY THIS RN AND PATIENT WAS CONTENT WITH THIS PLAN. CALL LIGHT IN REACH AND PATIENT HAS NO OTHER CARE NEEDS AT THIS TIME.
--- NOTE | 2021-08-31 13:13 | EKG ---
[facility] [address] [facility] [place] [address] Signed Sinus bradycardia Inferior infarct (cited on or before 03-MAY-2019) T wave abnormality, consider lateral ischemia Abnormal ECG When compared with ECG of 03-MAY-2019 14:09, Vent. rate has decreased BY 34 BPM T wave inversion more evident in Lateral leads Confirmed by VINOD BIRD MD ([id number]) on 08/31/2021 1:13:12 PM Electronically Signed By: VINOD BIRD MD 08/31/21 1313 PATIENT NAME: RUPALI QUIROGA Electrocardiogram DATE OF : 60 PHYSICIAN: VINOD BIRD MD REPORT #: [id number] REPORT IS CONFIDENTIAL AND NOT TO BE RELEASED WITHOUT AUTHORIZATION
--- NOTE | 2021-08-31 14:20 | NUR ---
PATIENT HAS HAD 3 LARGE BM'S ON THE SHIFT SO FAR TODAY. IN TO SEE PATIENT AND WROTE DC ORDERS. PATIENT DC'D HOME WITH NO CHANGE IN MEDS AND AND IN STABLE CONDITION WITH STABLE VS. IV DC'D INTACT. THIS RN TOO PATIENT TO THE FRONT LOBBY VIA W/C TO BE PICKED UP BY A FRIEND AND BE TAKEN HOME BY PRIVATE CAR. ALL PATIENT'S BELONGINGS SENT WITH THE PATIENT.
--- NOTE | 2021-08-31 21:21 | DS ---
[facility] [address] [place] [place], [place] [address] Signed ADMISSION DATE: 08/31/2021 DISCHARGE DATE: 08/31/2021 FINAL DIAGNOSIS: Resolved small bowel obstruction. PROCEDURE: CT scan of abdomen and pelvis. HISTORY OF PRESENT ILLNESS: Jalen is a 61-year-old gentleman, who earlier this year had a very similar episode. He has been eating quite a bit of cabbage and developed periumbilical pain and ended up being admitted through the ER. His white count was normal, but the CT scan showed what was probably a transition point in the mid small bowel. However, he has never had previous abdominal surgery and there was no hernia. No obvious tumor. He was hydrated and he has already had three large bowel movements and lots of flatus and feels much better. He was asked to go home. On exam, he is correct, his abdomen is completely soft, flat, nontender and much improved. DISCHARGE PLANS AND MEDICATIONS: Jalen will be discharged to home without any new prescriptions. He can continue his usual diet and activities. He should follow up with his primary care provider as usual. He is welcome to follow up in my office as needed or come back to the emergency room if he has any recurrent symptoms. He has expressed understanding, agrees with above plan. Martina Zamora MD ALB/MODL /[id number] cc: Patient Chart MD Kiersten Cowan PA-C Electronically Signed By: MARTINA ZAMORA MD 08/31/21 2121 PATIENT NAME: JALEN QUIROGA DISCHARGE SUMMARY DATE OF : 60 REPORT #: [id number] PHYSICIAN: MARTINA ZAMORA MD PCP: KIERSTEN JONES PA-C REPORT IS CONFIDENTIAL AND NOT TO BE RELEASED WITHOUT AUTHORIZATION [address] [place] [address] Signed Copies: MARTINA ZAMORA MD, CHLOE K PA-C ~ Electronically Signed By: MARTINA ZAMORA MD 08/31/212120 PATIENT NAME: JALEN QUIROGA DISCHARGE SUMMARY DATE OF : 60 REPORT #: [id number] PHYSICIAN: MARTINA ZAMORA MD PCP: KIERSTEN JONES PA-C REPORT IS CONFIDENTIAL AND NOT TO BE RELEASED WITHOUT AUTHORIZATION
== END 2021-08-31 14:20 | disposition home or self-care (01) ==
LOC: ED 22:32 → MS 22:33 → ED 08-31 00:57 → MS 08-31 14:20
PROVIDERS: ADMIT Colon & Rectal Surgery; ATTEND Colon & Rectal Surgery
DX: K56.609 Unspecified intestinal obstruction, unspecified as to partial versus complete obstruction (principal); I25.10 Atherosclerotic heart disease of native coronary artery without angina pectoris; E78.5 Hyperlipidemia, unspecified; F17.210 Nicotine dependence, cigarettes, uncomplicated; Z95.1 Presence of aortocoronary bypass graft; Z88.1 Allergy status to other antibiotic agents; Z88.8 Allergy status to other drugs, medicaments and biological substances; Z79.82 Long term (current) use of aspirin; Z79.899 Other long term (current) drug therapy; Z20.822 Contact with and (suspected) exposure to COVID-19
CPT/HCPCS: 36415; 74177; 80053; 81001; 83605; 83690; 85025; 87502; 93005; 93010; 96361; 96372; 96374; 96375; 99285-25; C9803; G0378; J1650; J1885; J2405; J7030; J7121; Q9967; U0003

== ENCOUNTER 2024-12-20 17:51 | Emergency (ER) | payer OTHER ==
[~2024-12-20] VITALS: Ht 180.3 cm; Wt 96.2 kg
[2024-12-20] MEDS ORDERED: COZAAR25 MG PO (18:01)
[2024-12-20] MEDS ORDERED: FARXIGA5 MG PO (18:02)
[2024-12-20 18:39] LABS: CORONAVIRUS COVID-19 AG NEGATIVE (NEGATIVE)
[2024-12-20 18:53] VITALS: BP 141/76
== END 2024-12-20 18:53 | disposition home or self-care (01) ==
LOC: ED 17:51
PROVIDERS: Emergency Medicine
DX: R51.9 Headache, unspecified (principal); F17.200 Nicotine dependence, unspecified, uncomplicated; I10 Essential (primary) hypertension; E78.5 Hyperlipidemia, unspecified; Z88.8 Allergy status to other drugs, medicaments and biological substances; Z79.899 Other long term (current) drug therapy
CPT/HCPCS: 36415; 99284

== ENCOUNTER 2025-01-03 18:26 | Emergency (ER) | payer OTHER ==
[~2025-01-03] VITALS: Ht 180.3 cm; Wt 95.3 kg
--- OUTSIDE RECORDS SUMMARY | ~2025-01-03 | XMS | Continuity of Care Document ---
Demographics + + + | Address | [address] | | | [place] [address] | + + + | Preferred Language | Unknown | + + + | Marital Status | | + + + | Amish Affiliation | Unknown | + + + | Race | White | + + + | Ethnic Group | Not or | + + + Author + + + | Author | [facility] | + + + | Organization | [facility] | + + + | Address | [address] | | | [place] [address] | + + + | Phone | | + + + Care Team Providers + + + + | Care Freight Tallier Name | Role | Phone | + + + + Unavailable | Unavailable | + + + + Unavailable | Unavailable | + + + + Allergies and Intolerances + + + + + + | date | description | facility | reaction | severity | + + + + + + | 2024-12-20 | Lisinopril | [facility] - | Facial | Severe | | 00:00 | | [facility] | | | + + + + + + | 2024-12-20 | Lisinopril | [facility] - | Facial | Severe | | 00:00 | | [facility] | [facility] | | | [facility] | Hospital | | | + + + + + + | 2024-12-20 | Erythromycin | [facility] - | Nausea and | Mild | | 00:00 | base | [facility] | vomiting | | | | | Hospital | | | + + + + + + | 2024-12-20 | Lisinopril | [facility] - | Facial | Severe | | 00:00 | | [facility] | swelling | | | | | Hospital | | | + + + + + + | 2024-12-20 | Erythromycin | [facility] - | Nausea and | Mild | | 00:00 | base | [facility] | vomiting | | | | | Hospital | | | + + + + + + Encounters No information. Functional Status No information. Immunizations No information. Medications + + + + | date | description | facility | + + + + | (no date) | DAPAGLIFLOZIN PROPANEDIOL | [facility] [place] [facility] | | | | [facility] | + + + + | (no date) | EVOLOCUMAB | [facility] | | | | [facility] | + + + + | (no date) | CARVEDILOL | [facility] | | | | [facility] | + + + + | (no date) | CLINDAMYCIN HCL | [facility] | | | | [facility] | + + + + | (no date) | Aspirin | [facility] | | | | [facility] | + + + + | (no date) | LISINOPRIL | [facility] | | | | [facility] | + + + + | (no date) | BUPRENORPHINE HCL | [facility] | | | | [facility] | + + + + | (no date) | LOSARTAN POTASSIUM | [facility] | | | | [facility] | + + + + Problems + + + + | date | description | facility | + + + + | 2024-12-20 00:00 | Headache | [facility] | | | | [facility] | + + + + Procedures No information. Results/Labs +--------+--------+ +---------+--------+---------+ | test | date | facility | value | unit | notes | +--------+--------+ +---------+--------+---------+ + + | Result panel 1 | + + + + + + + + + | FLUAV Ag | 2024-12-20 | | NEGATIVE | (missing) | (missing) | | Upper resp | 18:15:07 | [facility] | | | | | Ql IA.rapid | [facility] | | | | + + + + + + + + + | Result panel 2 | + + + + + + + + + | FLUBV Ag | 2024-12-20 | | NEGATIVE | (missing) | (missing) | | Upper resp | 18:15:07 | [facility] | | | | | Ql IA.rapid | [facility] | | | | + + + + + + + + + | Result panel 3 | + + + + + + + + + | | 2024-12-20 | | NEGATIVE | (missing) | (missing) | | SARS-CoV+RUTHANN | 18:15:07 | [facility] | | | | | S-CoV-2 Ag | | - [facility] | [facility] | | | | + + + + + + + + + | Result panel 4 | + + + + + + + + + | Annotation | 2024-12-20 | | SEE BELOW | (missing) | (missing) | | comment Imp | 18:15:07 | [facility] | | | | | | [facility] | | | | + + + + + + + Social History +--------+ + + | date | description | facility | +--------+ + + Vital Signs + + + +---------+ | date | measurement | value | units | + + + +---------+ | 2024-12-20 00:00 | BMI | 29.6 | kg/m2 | + + + +---------+ | 2024-12-20 00:00 | BP_diastolic | 76 | mmHg | + + + +---------+ | 2024-12-20 00:00 | BP_systolic | 141 | mmHg | + + + +---------+ | 2024-12-20 00:00 | heart_rate | 57 | /min | + + + +---------+ | 2024-12-20 00:00 | height_metric | 180.34 | cm | + + + +---------+ | 2024-12-20 00:00 | height_standard | 71 | in | + + + +---------+ | 2024-12-20 00:00 | o2_saturation | 95 | % | + + + +---------+ | 2024-12-20 00:00 | respiration_rate | 18 | /min | + + + +---------+ | 2024-12-20 00:00 | | 98 | F | | | temperature_standar | | | | | d | | | + + + +---------+ | 2024-12-20 00:00 | weight_metric | 96.201 | kg | + + + +---------+ | 2024-12-20 00:00 | weight_standard | 212.087 | lb | + + + +---------+"
[~2025-01-03 18:26] MED LIST changes: +COZAAR25 MG PO; +FARXIGA5 MG PO
--- OUTSIDE RECORDS SUMMARY | 2025-01-03 18:33 | XMS ---
PreManage Notification: RUPALI QUIROAG Security Legal Support Specialist Events No recent Security Events currently on file CRITERIA MET - [facility] - 2 Visits in 30 Days CARE PROVIDERS ASHLY JONES Physician 06/06/2019-Current PHONE: Unknown -[facility]ist: Senior Instrumentation Engineer [facility] PHONE: [phone] -[facility]- Dentist: Senior Instrumentation Engineer [facility] PHONE: [phone] Riley has no Care Guidelines for this patient. E.D. VISIT COUNT (12 MO.) [address] [facility] TOTAL 2 NOTE: Visits indicate total known visits. 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
[2025-01-03] MEDS ORDERED: ALBUTEROL/IPRATROPIUM 3 ML NEB INH PRN (20:30)
[2025-01-03 20:51] LABS: BASOPHILS 0.4 % (0.2-1.2); EOSINOPHILS 2.1 % (0.8-7.0); LYMPHOCYTES 14.0 % (21.8-53.1); MCH 29.7 PG (25.7-32.2); MCHC 32.6 g/dL (32.3-36.5); MCV 90.9 fL (79.0-92.2); MONOCYTES 10.7 % (5.3-12.2); NEUTROPHILS 72.6 % (34.0-67.9); RBC 5.19 M/uL (4.63-6.08)
[2025-01-03 20:56] LABS: CORONAVIRUS COVID-19 AG NEGATIVE (NEGATIVE)
[2025-01-03 21:15] LABS: ALT (SGPT) 25.0 U/L (14-59); AST (SGOT) 19.0 U/L (15-37); GLOMERULAR FILTRATION RATE,EST 103.0 mL/min (>60); PROTEIN, TOTAL 6.9 g/dL (6.4-8.2); UREA NITROGEN 16.0 mg/dL (7-18)
[2025-01-03] MEDS ORDERED: DEXAMETHASONE SOD PHOS 10 MG/ML VIAL IV ONE (21:30)
[2025-01-03] MEDS ORDERED: FUROSEMIDE 40 MG/4 ML VIAL IV ONE (21:30)
[2025-01-03] MEDS ORDERED: CIPROFLOXACIN 0.3% 5 ML HOME.PACK OPTH ONE (22:15)
[2025-01-03 23:00] VITALS: BP 123/70
--- NOTE | 2025-01-04 17:52 | EKG ---
[facility] [address] [facility] [place] [address] Signed Normal sinus rhythm Inferior infarct (cited on or before 03-MAY-2019) Possible Anterolateral infarct , age undetermined Abnormal ECG When compared with ECG of 31-AUG-2021 07:51, Borderline criteria for Anterior infarct are now present Borderline criteria for Anterolateral infarct are now present T wave inversion less evident in Lateral leads QT has shortened Confirmed by Jonelle Richardson DO ([id number]) on 01/04/2025 5:52:12 PM Electronically Signed By: JONELLE RICHARDSON DO 01/04/251751 PATIENT NAME: RUPALI QUIROGA Electrocardiogram DATE OF : 60 PHYSICIAN: JONELLE RICHARDSON DO REPORT #: [id number] REPORT IS CONFIDENTIAL AND NOT TO BE RELEASED WITHOUT AUTHORIZATION
--- NOTE | 2025-01-04 17:52 | EKG ---
[facility] [address] [facility] [place] [address] Signed Normal sinus rhythm Inferior infarct (cited on or before 03-MAY-2019) Anterior infarct (cited on or before 31-AUG-2021) ST \T\ T wave abnormality, consider lateral ischemia Abnormal ECG When compared with ECG of 03-JAN-2025 20:24, (Unconfirmed) No significant change was found Confirmed by Jonelle Richardson DO ([id number]) on 01/04/2025 5:52:28 PM Electronically Signed By: JONELLE RICHARDSON DO 01/04/251751 PATIENT NAME: RUPALI QUIROGA Electrocardiogram DATE OF : 60 PHYSICIAN: JONELLE RICHARDSON DO REPORT #: [id number] REPORT IS CONFIDENTIAL AND NOT TO BE RELEASED WITHOUT AUTHORIZATION
== END 2025-01-03 23:00 | disposition home or self-care (01) ==
LOC: ED 18:26
PROVIDERS: Internal Medicine
DX: I11.0 Hypertensive heart disease with heart failure (principal); I50.9 Heart failure, unspecified; H10.9 Unspecified conjunctivitis; E78.5 Hyperlipidemia, unspecified; F17.200 Nicotine dependence, unspecified, uncomplicated; Z88.1 Allergy status to other antibiotic agents; Z88.8 Allergy status to other drugs, medicaments and biological substances; Z79.82 Long term (current) use of aspirin
CPT/HCPCS: 36415; 71045; 80053; 83735; 83880; 84484; 85025; 93005; 93010; 96374; 96375; 99285-25; J1100; J1938